=== PATIENT | male | born 1990 | race African-American/Black ===

== ENCOUNTER 2021-01-01 00:30 | Emergency (ER) | payer MEDICAID, OTHER ==
[~2021-01-01] VITALS: Ht 170.2 cm; Wt 77.1 kg
--- NOTE | 2021-01-01 00:56 | NUR ---
Assumed care of patient. patient presents to ER with c/o R flank pain radiating to the RLQ x 2 days. No N/V/D
[2021-01-01] MEDS ORDERED: HYDROMORPHONE 1 MG/1 ML DISP.SYRIN IV ONE (01:15)
[2021-01-01] MEDS ORDERED: KETOROLAC TROMETHAMINE 30 MG INJ IVP ONE (01:15)
[2021-01-01] MEDS ORDERED: ONDANSETRON 4 MG/2 ML VIAL IV ONE (01:15)
--- NOTE | 2021-01-01 01:24 | NUR ---
Patient taken to CT at this time. VSS
[2021-01-01] MEDS ORDERED: ONDANSETRON 4 MG/2 ML VIAL ONE (01:27)
[2021-01-01] MEDS ORDERED: HYDROMORPHONE 1 MG/1 ML DISP.SYRIN ONE (01:27)
[2021-01-01] MEDS ORDERED: KETOROLAC TROMETHAMINE 30 MG INJ ONE (01:27)
[2021-01-01 01:29] LABS: HEMATOCRIT 47.4 % (36.7-47.1); MEAN CORPUSCULAR HEMOGLOBIN 31.1 uug (23.8-33.4); MEAN CORPUSCULAR VOLUME 92.7 fL (73.0-96.2); PLATELET COUNT (AUTO) 231 K/uL (152-348)
--- NOTE | 2021-01-01 01:37 | NUR ---
Patient back from CT. No acute distress noted. VSS
[2021-01-01 01:38] LABS: *BILIRUBIN,URIN NEGATIVE (NEGATIVE); *CLARITY,URINE CLOUDY (CLEAR); *COLOR,URINE YELLOW (YELLOW); *KETONES,URINE TRACE (NEGATIVE); LEUKOCYTE ESTERASE ,URINE 2+ (NEGATIVE); NITRITE, URINE NEGATIVE (NEGATIVE); PH,URINE 5.5 (5.0-8.0); UGLUCOSE NEGATIVE (NEGATIVE)
[2021-01-01 01:39] LABS: CREATININE 1.1 mg/dL (0.6-1.3)
[2021-01-01 01:40] LABS: *BLOOD, URINE TRACE (NEGATIVE)
[2021-01-01 01:46] LABS: BACTERIA,URINE FEW /HPF (NONE SEEN); SQUAMOUS EPITHELIAL CELL,UR FEW /HPF (NONE SEEN); WBC,URINE 50-80 /HPF (0-3)
--- NOTE | 2021-01-01 02:00 | NUR ---
Patient in bed, no acute distress.
[2021-01-01] MEDS ORDERED: CEFTRIAXONE 1 G in IV DEXTROSE 5% 50 ML IV ONE (02:30)
[2021-01-01] MEDS ORDERED: DOXYCYCLINE HYCLATE 100 MG TABLET PO ONE (02:30)
[2021-01-01] MEDS ORDERED: DOXYCYCLINE HYCLATE 100 MG TABLET ONE (02:36)
[2021-01-01] MEDS ORDERED: CEFTRIAXONE 1 G VIAL ONE (02:37)
[2021-01-01] MEDS ORDERED: LIDOCAINE HCL 2% 20 ML VIAL ONE (02:37)
--- NOTE | 2021-01-01 02:38 | NUR ---
PIV removed per ER MD instruction. Ceftriaxone 1gm was given IVP per Dr Jefferson instruction. IVP was given over 5 minutes.
[2021-01-01] MEDS ORDERED: DOXY-326 PO (02:46)
[2021-01-01] MEDS ORDERED: OXYC-128 PO (02:46)
--- NOTE | 2021-01-01 02:46 | NUR ---
Patient discharged to home in stable condition. Written and verbal after care instructions given. Patient verbalizes understanding of instructions. Stressed follow up or return to ER for worsening s/s. Ambulated from ER with stable gait. All belongings with patient. Patient driven home by taxi. PIV removed prior to d/c
[2021-01-01 02:47] VITALS: BP 141/76
== END 2021-01-01 02:52 | disposition home or self-care (01) ==
LOC: ER 00:41 → EDBD 00:41 → ER 02:52
DX: N45.1 Epididymitis (principal); Z84.1 Family history of disorders of kidney and ureter
CPT/HCPCS: 36415; 74176; 76870; 80048; 81001; 85025; 87086; 96365; 96375; 99285; J0696; J1170; J1885; J2405; J3490; J7030